=== PATIENT | male | born 2000 | race Caucasian/White ===

== ENCOUNTER 2019-05-17 15:13 | Emergency (ER) | payer OTHER ==
[~2019-05-17] VITALS: Ht 180.3 cm; Wt 65.8 kg
[~2019-05-17 15:13] MED LIST: KEFLEX500 MG PO; NORCO 10-325 T1 EACH PO; NORCO 5-325 TA1 EACH PO; NORCO 7.5-3251 EACH PO
[2019-05-17] MEDS ORDERED: NORCO 5-325 TA1 EACH PO (17:54)
== END 2019-05-17 18:29 | disposition home or self-care (01) ==
LOC: ED 15:13
DX: S62.635A Displaced fracture of distal phalanx of left ring finger, initial encounter for closed fracture (principal); S67.22XA Crushing injury of left hand, initial encounter; X58.XXXA Exposure to other specified factors, initial encounter
CPT/HCPCS: 73130; 99283